=== PATIENT | female | born 1930 | race Caucasian/White ===

== ENCOUNTER 2016-07-09 21:33 | Emergency (ER) | payer MEDICARE, OTHER ==
[~2016-07-09] VITALS: Ht 162.6 cm; Wt 63.5 kg
[~2016-07-09 21:33] MED LIST: see list
[2016-07-09] MEDS ORDERED: MEMA28CA PO (21:49)
[2016-07-09] MEDS ORDERED: CLOP75TA69 PO (21:49)
[2016-07-09] MEDS ORDERED: LORA10CA PO (21:49)
[2016-07-09] MEDS ORDERED: DONE10TA12 PO (21:49)
[2016-07-09] MEDS ORDERED: TEMA15CA6 PO (21:49)
[2016-07-09] MEDS ORDERED: LUTE20CA2 PO (21:49)
[2016-07-09] MEDS ORDERED: NS IV 500 ML 500 ML IV ONE (21:50)
--- NOTE | 2016-07-09 21:56 | ED General ---
General Chief Complaint: Abdominal/GI Problems Stated Complaint: DIZZY, NAUSEA Nursing Triage Note: per [facility] staff patient has had emesis x 4 and became weak and dizzy after the fact. Nursing Sepsis Screen: No Definite Risk Source of Information: Patient Exam Limitations: No Limitations History of Present Illness Time Seen by Provider: 21:35 Initial Comments This pleasant 85-year-old woman presents to the emergency room from [facility] where she was experiencing dizziness and vomiting. She has a mild cough. She denies any diarrhea or abdominal pain. A recent workup with her PCP , Dr. Strauss, was unremarkable per family's report. She is accompanied by her daughter. Staff at the [facility] reported "increased lethargy" and a yellowish color to her skin. She suffers from dementia but is still interactive and responding appropriately to my questions. She denies any nausea at this time. Allergies and Home Medications Allergies Coded Allergies: No Known Drug Allergies (Unverified , 08/10/11) Home Medications (Reported) Cephalexin 500 Mg Capsule #20 500 MG PO TID Prescribed by: JIGAR PRESCOTT on 07/10/16 0001 Clopidogrel Bisulfate 75 Mg Tablet 75 MG PO DAILY (Reported) Donepezil HCl 10 Mg Tablet 10 MG PO (Reported) Loratadine 10 Mg Capsule 10 MG PO (Reported) Lutein 20 Mg Capsule 20 MG PO (Reported) Memantine HCl 28 Mg Cap.spr.24 28 MG PO (Reported) Temazepam 15 Mg Capsule 15 MG PO (Reported) Constitutional: see HPI EENTM: no symptoms reported Respiratory: see HPI Cardiovascular: no symptoms reported Gastrointestinal: see HPI Genitourinary: no symptoms reported : No Musculoskeletal: no symptoms reported Skin: no symptoms reported Psychiatric/Neurological: See HPI Hematologic/Lymphatic: No Symptoms Reported Past Ishoasm-Irihyr-Vjgncl Hx Patient Social History Alcohol Use: Denies Use Recreational Drug Use: No Smoking Status: Never a Smoker Recent Foreign Travel: No Contact w/Someone Who Travel: No Recent Infectious Disease Expo: No Recent Hopitalizations: No Surgeries HX Surgeries: Yes Surgeries: Breast, Gallbladder, Orthopedic Respiratory Hx Respiratory Disorders: No Cardiovascular Hx Cardiac Disorders: Yes Cardiac Disorders: Coronary Artery Disease Neurological Hx Neurological Disorders: Yes Neurological Disorders: Dementia Reproductive System Hx Reproductive Disorders: No Genitourinary Hx Genitourinary Disorders: Yes Genitourinary Disorders: UTI-Chronic Gastrointestinal Hx Gastrointestinal Disorders: No Musculoskeletal Hx Musculoskeletal Disorders: Yes Musculoskeletal Disorders: Arthritis Endocrine Hx Endocrine Disorders: No HEENT HX ENT Disorders: Yes HEENT Disorders: Macular Degeneration Hearing Impairment: Hard of Hearing Cancer Hx Cancer: No Psychosocial Hx Psychiatric Problems: No Integumentary HX Skin/Integumentary Disorder: No Blood Transfusions Hx Blood Disorders: No Physical Exam Vital Signs Vital Sign - Last 12Hours 07/09/16 21:42 Temp 96.4 Pulse 83 Resp 18 B/P 160/81 Pulse Ox 95 Capillary Refill : Less Than 3 Seconds General Appearance: No Apparent Distress WD/WN HEENT: PERRL/EOMI Normal ENT Inspection Pharynx Normal Neck: Normal Inspection Respiratory: Lungs Clear Normal Breath Sounds No Accessory Muscle Use No Respiratory Distress Cardiovascular: Regular Rate, Rhythm No Edema No Murmur Gastrointestinal: Normal Bowel Sounds Non Tender Soft Extremity: Normal Inspection No Pedal Edema Neurologic/Psychiatric: Alert No Motor/Sensory Deficits Normal 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 Norm as Tested Other (dulled cognition with dementia at baseline.) Skin: Normal Color Warm/Dry Progress/Results/Core Measures Results/Orders Lab Results Laboratory Tests Test 07/09/16 21:52 07/09/16 23:00 Range/Units Alanine Aminotransferase (ALT/SGPT) 11 0-55 U/L Albumin 4.2 3.2-4.5 G/DL Alkaline Phosphatase 49 40-136 U/L Anion Gap 11 5-14 MMOL/L Aspartate Amino Transf (AST/SGOT) 14 5-34 U/L BUN/Creatinine Ratio 19 Basophils # (Auto) 0.1 0.0-0.1 10^3/uL Basophils (%) (Auto) 0 0-10 % Blood Urea Nitrogen 18 7-18 MG/DL Calcium Level 9.5 8.5-10.1 MG/DL Carbon Dioxide Level 25 21-32 MMOL/L Chloride Level 103 98-107 MMOL/L Creatinine 0.93 0.60-1.30 MG/DL Eosinophils # (Auto) 0.1 0.0-0.3 10^3/uL Eosinophils (%) (Auto) 1 0-10 % Estimat Glomerular Filtration Rate 57 Glucose Level 116 H 70-105 MG/DL Hematocrit 42 35-52 % Hemoglobin 14.1 11.5-16.0 G/DL Lymphocytes # (Auto) 2.4 1.0-4.0 X 10^3 Lymphocytes (%) (Auto) 19 12-44 % Magnesium Level 2.3 1.8-2.4 MG/DL Mean Corpuscular Hemoglobin 33 25-34 PG Mean Corpuscular Hemoglobin Concent 34 32-36 G/DL Mean Corpuscular Volume 98 80-99 FL Mean Platelet Volume 8.8 7.4-10.4 FL Monocytes # (Auto) 0.9 0.0-1.0 X 10^3 Monocytes (%) (Auto) 7 0-12 % Neutrophils # (Auto) 9.4 H 1.8-7.8 X 10^3 Neutrophils (%) (Auto) 73 42-75 % Platelet Count 235 130-400 10^3/uL Potassium Level 4.1 3.6-5.0 MMOL/L Red Blood Count 4.25 L 4.35-5.85 10^6/uL Red Cell Distribution Width 12.6 10.0-14.5 % Sodium Level 139 135-145 MMOL/L Total Bilirubin 0.4 0.1-1.0 MG/DL Total Protein 6.8 6.4-8.2 G/DL Troponin I < 0.30 <0.30 NG/ML White Blood Count 12.9 H 4.3-11.0 10^3/uL Urine Amorphous Sediment FEW MICHELLE PHOSPHATE H /LPF Urine Bacteria TRACE /HPF Urine Bilirubin NEGATIVE NEGATIVE Urine Casts NONE /LPF Urine Clarity VERY CLOUDY H Urine Color YELLOW Urine Crystals PRESENT H /LPF Urine Culture Indicated YES Urine Glucose (UA) NEGATIVE NEGATIVE Urine Ketones NEGATIVE NEGATIVE Urine Leukocyte Esterase 3+ H NEGATIVE Urine Mucus NEGATIVE /LPF Urine Nitrite NEGATIVE NEGATIVE Urine Protein NEGATIVE NEGATIVE Urine RBC NONE /HPF Urine RBC (Auto) 1+ H NEGATIVE Urine Specific [place] 1.015 L 1.016-1.022 Urine Squamous Epithelial Cells 5-10 /HPF Urine Urobilinogen NORMAL NORMAL MG/DL Urine WBC 25-50 H /HPF Urine pH 8 5-9 Micro Results Microbiology 07/09/16 Influenza Types A,B Antigen (CHACE) - Final, Complete My Orders Orders-JIGAR ACE MD Cbc With Automated Diff (07/09/16 21:34) Comprehensive Metabolic Panel (07/09/16 21:34) Magnesium (07/09/16 21:34) Ua Culture If Indicated (07/09/16 21:34) Saline Lock/Iv-Start (07/09/16 21:34) Ekg Tracing (07/09/16 21:34) Monitor-Rhythm Ecg Trace Only (07/09/16 21:34) Chest Pa/Lat (2 View) (07/09/16 21:47) Troponin I (07/09/16 21:47) Influenza A And B Antigens (07/09/16 21:47) Ns Iv 500 Ml (Sodium Chloride 0.9%) (07/09/16 21:50) Urine Culture (07/09/16 23:00) Ceftriaxone Injection (Rocephin Injectio (07/09/16 23:30) Rx-Ondansetron Po (Rx-Zofran Po) (07/09/16 23:23) Medications Given in ED Current Medications Medications Dose Ordered Sig/Presley Route Start Time Stop Time Status Last Admin Dose Admin Ceftriaxone Sodium/Sodium Chloride 50 ml @ 100 mls/hr ONCE ONCE IV 07/09/16 23:30 07/09/16 23:59 DC 07/09/16 23:31 100 MLS/HR Sodium Chloride 500 ml @ 0 mls/hr Q0M ONCE IV 07/09/16 21:50 07/09/16 21:51 DC 07/09/16 21:56 0 MLS/HR Vital Signs/I&O Vital Sign - Last 12Hours 07/09/16 07/10/16 21:42 00:06 Temp 96.4 Pulse 83 84 Resp 18 16 B/P 160/81 Pulse Ox 95 98 Blood Pressure Mean: 107 Progress Note : Progress Note Patient was found to have a urinary tract infection and a gram of Rocephin was infused. She also received 500 mL of normal saline. There was no further nausea or vomiting. Patient was comfortable at the time of dismissal. ECG Initial ECG Impression Date: Jul 09, 2016 Initial ECG Impression Time: 21:44 Initial ECG Rate: 69 Initial ECG Rhythm: Normal Sinus Comment Normal sinus rhythm with no ST elevation or depression. Automated read states left anterior fascicular block. No significant axis deviation. Diagnostic Imaging Diagonstic Imaging: Xray Plain Films/CT/US/NM/MRI: chest Comments two-view chest x-ray viewed by me and report not available. Elevation of the right hemidiaphragm with no other acute abnormalities. Departure Impression Impression: Primary Impression: Urinary tract infection Qualified Code: N39.0 - Urinary tract infection, site not specified Additional Impressions: Nausea and vomiting Qualified Code: R11.2 - Nausea with vomiting, unspecified Malaise Disposition: HOME, SELF-CARE Condition: Improved Departure-Patient Inst. Decision time for Depature: 23:30 Referrals: ALLAN STRAUSS MD (PCP/Family) Primary Care Physician Patient Instructions: Urinary Tract Infection, Adult (DC) Add. Discharge Instructions: Encourage plenty of clear liquids. Complete the entire course of antibiotics as prescribed. Follow-up with your primary care provider on Monday to review urine culture results. Dissolve Zofran under the tongue every 4 hours as needed for nausea. Return to the ER symptoms worsen. All discharge instructions reviewed with patient and/or family. Voiced understanding. Scripts Cephalexin (Keflex)500 Mg [id number] Mg PO TID #20 CAP Prov:JIGAR ACE MD 07/10/16 JIGAR ACE MD Jul 09, 2016 21:56
[2016-07-09 21:59] LABS: BASOPHILS # (AUTO) 0.1 10^3/uL (0.0-0.1); BASOPHILS % (AUTO) 0 % (0-10); EOSINOPHILS # (AUTO) 0.1 10^3/uL (0.0-0.3); EOSINOPHILS % (AUTO) 1 % (0-10); LYMPHOCYTES # (AUTO) 2.4 X 10^3 (1.0-4.0); LYMPHOCYTES % (AUTO) 19 % (12-44); MEAN CORPUSCULAR HEMOGLOBIN 33 PG (25-34); MEAN CORPUSCULAR HGB CONC 34 G/DL (32-36); MEAN CORPUSCULAR VOLUME 98 FL (80-99); MEAN PLATELET VOLUME 8.8 FL (7.4-10.4); MONOCYTES # (AUTO) 0.9 X 10^3 (0.0-1.0); MONOCYTES % (AUTO) 7 % (0-12); NEUTROPHILS # (AUTO) 9.4 X 10^3 (1.8-7.8); NEUTROPHILS % (AUTO) 73 % (42-75); PLATELET COUNT 235 10^3/uL (130-400); RED BLOOD COUNT 4.25 10^6/uL (4.35-5.85); RED CELL DISTRIBUTION WIDTH 12.6 % (10.0-14.5); WHITE BLOOD COUNT 12.9 10^3/uL (4.3-11.0)
[2016-07-09 22:20] LABS: ALANINE AMINOTRANSFERASE 11 U/L (0-55); ALBUMIN 4.2 G/DL (3.2-4.5); ANION GAP 11 MMOL/L (5-14); ASPARTATE AMINO TRANSFERASE 14 U/L (5-34); BILIRUBIN,TOTAL 0.4 MG/DL (0.1-1.0); BLOOD UREA NITROGEN 18 MG/DL (7-18); BUN/CREATININE RATIO 19; CALCIUM 9.5 MG/DL (8.5-10.1); CARBON DIOXIDE 25 MMOL/L (21-32); CHLORIDE 103 MMOL/L (98-107); CREATININE SERUM 0.93 MG/DL (0.60-1.30); GFR ESTIMATED 57; GLUCOSE 116 MG/DL (70-105); MAGNESIUM 2.3 MG/DL (1.8-2.4); POTASSIUM 4.1 MMOL/L (3.6-5.0); SODIUM 139 MMOL/L (135-145); TOTAL PROTEIN 6.8 G/DL (6.4-8.2)
[2016-07-09 22:26] LABS: TROPONIN I < 0.30 NG/ML (<0.30)
[2016-07-09 23:10] LABS: BILIRUBIN,URINE NEGATIVE (NEGATIVE); KETONES,URINE NEGATIVE (NEGATIVE); LEUKOCYTE ESTERASE ,URINE 3+ (NEGATIVE); NITRITE,URINE NEGATIVE (NEGATIVE); PH,URINE 8 (5-9); PROTEIN,URINE NEGATIVE (NEGATIVE); UROBILINOGEN,URINE NORMAL (NORMAL)
[2016-07-09 23:20] LABS: WBC,URINE 25-50 /HPF
[2016-07-09] MEDS ORDERED: RX-ONDANSETRON 4 MG ODT (ZOFRAN) PPK #4 SL STA (23:23)
[2016-07-09] MEDS ORDERED: cefTRIAXone INJECTION 1,000 MG in NS (IVPB) 50 ML IV ONE (23:30)
[2016-07-10] MEDS ORDERED: CEPH-507 PO (00:01)
[2016-07-10 00:06] VITALS: BP 169/88
--- NOTE | 2016-07-10 08:31 | Diagnostic Imaging Report ---
INDICATION: Repeated episodes of emesis, became weak and dizzy. TECHNIQUE: Two view chest 10:03 PM CORRELATION STUDY: None FINDINGS: Slight asymmetric elevation of the right hemidiaphragm. The lungs overall appear to be generally clear. Heart size borderline enlarged. Vasculature within normal limits. Calcified perihilar lymph nodes present. Slightly accentuated thoracic kyphotic curvature with degenerative changes of the thoracic spine. IMPRESSION: 1. Asymmetric elevation of the right hemidiaphragm with unknown etiology or significance. Borderline heart size without failure. Dictated by: Dictated on workstation # [id number]
== END 2016-07-10 00:05 ==
LOC: EDUNIT# 21:33 → ER 21:35
DX: N39.0 Urinary tract infection, site not specified (principal); R11.2 Nausea with vomiting, unspecified; R53.81 Other malaise; I44.4 Left anterior fascicular block; I25.10 Atherosclerotic heart disease of native coronary artery without angina pectoris; R42 Dizziness and giddiness; F03.90 Unspecified dementia, unspecified severity, without behavioral disturbance, psychotic disturbance, mood disturbance, and anxiety; Z79.899 Other long term (current) drug therapy; Z79.02 Long term (current) use of antithrombotics/antiplatelets
CPT/HCPCS: 36415; 71020; 80053; 81000; 83735; 84484; 85025; 87088; 87804; 93005; 96361; 96365

== ENCOUNTER → 2016-09-20 | Outpatient (CLI) | payer MEDICARE, OTHER ==
[~2016-09-20] MED LIST changes: +CEPH-507 PO; +CLOP75TA69 PO; +DONE10TA12 PO; +LORA10CA PO; +LUTE20CA2 PO; +MEMA28CA PO; +TEMA15CA6 PO
--- NOTE | 2016-09-20 15:33 | Diagnostic Imaging Report ---
PROCEDURE: CT head without contrast. TECHNIQUE: Multiple contiguous axial images were obtained through the brain without the use of intravenous contrast. INDICATION: Confusion. Weakness. Headache. FINDINGS: There is no intercurrent hemorrhage, edema or mass effect. The brain parenchyma demonstrates periventricular and deep white matter prominent hypodensities compatible with chronic microvascular ischemic changes. There is no hydrocephalus. No extra-axial fluid collection is seen. The calvarium, the paranasal sinuses and orbits visualized appear unremarkable. IMPRESSION: No acute process. Dictated by: Dictated on workstation # [id number]
== END ==
LOC: RAD 14:54
PROVIDERS: ATTEND Nurse Practitioner Family
DX: F44.89 Other dissociative and conversion disorders (principal)
CPT/HCPCS: 70450

== ENCOUNTER 2017-05-14 15:36 | Inpatient (IN) | payer MEDICARE, OTHER ==
[~2017-05-14] VITALS: Ht 162.6 cm; Wt 57.0 kg
[2017-05-14] MEDS ORDERED: NS IV 1000 ML 1,000 ML IV ONE (18:49)
[2017-05-14] MEDS ORDERED: RX-OSELTAMIVIR 75 MG (TAMIFLU) BOX OF 10 PO STA (18:49)
--- NOTE | 2017-05-14 18:57 | ED General ---
General Chief Complaint: Cough/Cold/Flu Symptoms Stated Complaint: LETHARGIC/COUGH Nursing Triage Note: c/o cough/congestion/weakness since Monday. Denies known fever. Denies vomiting or diarrhea. Nursing Sepsis Screen: No Definite Risk Source of Information: Patient, Family Exam Limitations: Physical Impairments History of Present Illness Time Seen by Provider: 18:35 Initial Comments Here with report of cough and congestion since Monday with fever today. Stays at the assisted living side at [facility]. She is not eating or drinking well and was quite lethargic today. Apparently wasn't eating or drinking well yesterday either. Does have dementia. Functions well enough to be in the assisted living side though. No report of vomiting or diarrhea. Does have some tingling around her lips. Not normally on oxygen. O2 saturations upper 80s when resting. Daughter was concerned due to moderate amount of chest rattling rattle with coughing. Timing/Duration: 1-2 Days Severity: Moderate Associated Systoms: Cough, Fever/Chills, No Nausea/Vomiting, Shortness of Air, Weakness Allergies and Home Medications Allergies Coded Allergies: No Known Drug Allergies (Unverified , 08/10/11) Home Medications Cephalexin 500 Mg Capsule, 500 MG PO TID, #20 Prescribed by: JIGAR PRESCOTT on 07/10/16 0001 Clopidogrel Bisulfate 75 Mg Tablet, 75 MG PO DAILY, (Reported) Donepezil HCl 10 Mg Tablet, 10 MG PO, (Reported) Loratadine 10 Mg Capsule, 10 MG PO, (Reported) Lutein 20 Mg Capsule, 20 MG PO, (Reported) Memantine HCl 28 Mg Cap.spr.24, 28 MG PO, (Reported) Temazepam 15 Mg Capsule, 15 MG PO, (Reported) [see list] , (Reported) Constitutional: see HPI, No chills, fever EENTM: nose congestion Respiratory: cough, short of breath Cardiovascular: no symptoms reported Gastrointestinal: No nausea, No vomiting Genitourinary: no symptoms reported Other Unable to complete review of systems due to patient's very sluggish and very hard of hearing and not answering questions well. Past Btyyrzx-Ngkbgt-Bedhbx Hx Patient Social History Alcohol Use: Denies Use Recreational Drug Use: No Smoking Status: Never a Smoker Recent Foreign Travel: No Contact w/Someone Who Travel: No Recent Infectious Disease Expo: No Recent Hopitalizations: No Surgeries History of Surgeries: Yes Surgeries: Breast, Gallbladder, Orthopedic Respiratory History of Respiratory Disorde: No Cardiovascular History of Cardiac Disorders: Yes Cardiac Disorders: Coronary Artery Disease Neurological History of Neurological Disord: Yes Neurological Disorders: Dementia Reproductive System Hx Reproductive Disorders: No Genitourinary Genitourinary Disorders: UTI-Chronic Gastrointestinal History of Gastrointestinal Di: No Musculoskeletal History of Musculoskeletal Dis: Yes Musculoskeletal Disorders: Arthritis Endocrine History of Endocrine Disorders: No HEENT HEENT Disorders: Macular Degeneration Hearing Impairment: Hard of Hearing Cancer History of Cancer: No Psychosocial History of Psychiatric Problem: No Integumentary History of Skin or Integumenta: No Blood Transfusions History of Blood Disorders: No Reviewed Nursing Assessment Reviewed/Agree w Nursing PMH: Yes Family Medical History Significant Family History: No Pertinent Family Hx Physical Exam-Suspected Sepsis Physical Exam Vital Signs Vital Sign - Last 12Hours 05/14/17 05/14/17 17:12 22:37 Temp 98.5 Pulse 100 Resp 18 B/P (MAP) 129/71 (90) Pulse Ox 91 O2 Delivery Room Air O2 Flow Rate 2.00 Capillary Refill : Less Than 3 Seconds Blood Pressure Mean: 90 General Appearance: No Apparent Distress, Thin HEENT: PERRL/EOMI, Other (Dry mucous membranes with soft palate growth noted. This is approximately 2 x 4 cm) Neck: Full Range of Motion, Non Tender, Supple Respiratory: No Accessory Muscle Use, Crackles Cardiovascular: No Murmur, Tachycardia Gastrointestinal: Non Tender, Soft Back: Normal Inspection, No CVA Tenderness, No Vertebral Tenderness Extremity: Normal Range of Motion, Non Tender Neurologic/Psychiatric: Alert, Oriented x3 Skin: normal color, warm/dry Focused Exam Evaluation Lactate Level Laboratory Tests 05/14/17 19:05: Lactic Acid Level 1.07 Progress/Results/Core Measures Suspected Sepsis Recent Fever Within 48 Hours: No Infection Criteria Present: Suspected New Infection New/Unexplained Altered Menta: No Sepsis Screen: No Definite Risk Sepsis Diagnosis: SIRS Temperature:98.5 Pulse: 100 Respiratory Rate: 18 Laboratory Tests 05/14/17 19:05: White Blood Count 7.8 Blood Pressure 129 /71 Mean: 90 Laboratory Tests 05/14/17 19:05: Lactic Acid Level 1.07 Laboratory Tests 05/14/17 19:05: Creatinine 0.73, INR Comment 1.1, Platelet Count 195, Total Bilirubin 0.4 Results/Orders Lab Results Laboratory Tests Test 05/14/17 19:05 05/14/17 21:00 Range/Units White Blood Count 7.8 4.3-11.0 10^3/uL Red Blood Count 4.22 L 4.35-5.85 10^6/uL Hemoglobin 14.0 11.5-16.0 G/DL Hematocrit 42 35-52 % Mean Corpuscular Volume 99 80-99 FL Mean Corpuscular Hemoglobin 33 25-34 PG Mean Corpuscular Hemoglobin Concent 33 32-36 G/DL Red Cell Distribution Width 12.5 10.0-14.5 % Platelet Count 195 130-400 10^3/uL Mean Platelet Volume 9.5 7.4-10.4 FL Neutrophils (%) (Auto) 72 42-75 % Lymphocytes (%) (Auto) 17 12-44 % Monocytes (%) (Auto) 11 0-12 % Eosinophils (%) (Auto) 0 0-10 % Basophils (%) (Auto) 0 0-10 % Neutrophils # (Auto) 5.6 1.8-7.8 X 10^3 Lymphocytes # (Auto) 1.3 1.0-4.0 X 10^3 Monocytes # (Auto) 0.9 0.0-1.0 X 10^3 Eosinophils # (Auto) 0.0 0.0-0.3 10^3/uL Basophils # (Auto) 0.0 0.0-0.1 10^3/uL Prothrombin Time 14.4 12.2-14.7 SEC INR Comment 1.1 0.8-1.4 Activated Partial Thromboplast Time 34 24-35 SEC Sodium Level 145 135-145 MMOL/L Potassium Level 4.6 3.6-5.0 MMOL/L Chloride Level 107 98-107 MMOL/L Carbon Dioxide Level 19 L 21-32 MMOL/L Anion Gap 19 H 5-14 MMOL/L Blood Urea Nitrogen 41 H 7-18 MG/DL Creatinine 0.73 0.60-1.30 MG/DL Estimat Glomerular Filtration Rate > 60 BUN/Creatinine Ratio 56 Glucose Level 104 70-105 MG/DL Lactic Acid Level 1.07 0.50-2.00 MMOL/L Calcium Level 10.2 H 8.5-10.1 MG/DL Total Bilirubin 0.4 0.1-1.0 MG/DL Aspartate Amino Transf (AST/SGOT) 30 5-34 U/L Alanine Aminotransferase (ALT/SGPT) 23 0-55 U/L Alkaline Phosphatase 54 40-136 U/L Total Protein 7.1 6.4-8.2 GM/DL Albumin 3.9 3.2-4.5 GM/DL Urine Color YELLOW Urine Clarity CLEAR Urine pH 5 5-9 Urine Specific [place] 1.025 H 1.016-1.022 Urine Protein 2+ H NEGATIVE Urine Glucose (UA) NEGATIVE NEGATIVE Urine Ketones 4+ H NEGATIVE Urine Nitrite NEGATIVE NEGATIVE Urine Bilirubin NEGATIVE NEGATIVE Urine Urobilinogen NORMAL NORMAL MG/DL Urine Leukocyte Esterase NEGATIVE NEGATIVE Urine RBC (Auto) NEGATIVE NEGATIVE Urine RBC NONE /HPF Urine WBC NONE /HPF Urine Squamous Epithelial Cells 0-2 /HPF Urine Crystals NONE /LPF Urine Bacteria NEGATIVE /HPF Urine Casts PRESENT /LPF Urine Hyaline Casts 0-2 H /LPF Urine Mucus NEGATIVE /LPF Urine Culture Indicated NO Micro Results Microbiology 05/14/17 Influenza Types A,B Antigen (CHACE) - Final, Complete My Orders Orders - ISAIAS GAMEZ MD Ns Iv 1000 Ml (Sodium Chloride 0.9%) (05/14/17 18:49) Cbc With Automated Diff (05/14/17 18:49) Comprehensive Metabolic Panel (05/14/17 18:49) Lactic Acid Analyzer (05/14/17 18:49) Blood Culture (05/14/17 18:49) Sputum Culture (05/14/17 18:49) Ua Culture If Indicated (05/14/17 18:49) Protime With Inr (05/14/17 18:49) Partial Thromboplastin Time (05/14/17 18:49) Chest 1 View, Ap/Pa Only (05/14/17 18:49) O2 (05/14/17 18:49) Saline Lock/Iv-Start (05/14/17 18:49) Vital Signs Adult Sepsis Patie Q1H (05/14/17 18:49) Remove Rings In Anticipation O (05/14/17 18:49) Rx-Oseltamivir Caps (Rx-Tamiflu Caps) (05/14/17 18:49) Ns Iv 500 Ml (Sodium Chloride 0.9%) (05/14/17 22:06) Albuterol/Ipra Inhalation Soln (Duoneb I (05/14/17 22:30) Svn Sm Volume Nebulizer Rt-Rfs (05/14/17 22:20) Methylprednisolone Sod Succ (Solu-Medrol (05/14/17 22:38) Medications Given in ED Current Medications Medications Dose Ordered Sig/Presley Route Start Time Stop Time Status Last Admin Dose Admin Albuterol/ Ipratropium 3 ml ONCE ONCE INH 05/14/17 22:30 05/14/17 22:31 DC 05/14/17 22:37 3 ML Sodium Chloride 500 ml @ 0 mls/hr Q0M ONCE IV 05/14/17 22:06 05/14/17 22:07 DC 05/14/17 22:20 0 MLS/HR Sodium Chloride 1,000 ml @ 0 mls/hr Q0M ONCE IV 05/14/17 18:49 05/14/17 18:52 DC 05/14/17 19:22 0 MLS/HR Vital Signs/I&O Vital Sign - Last 12Hours 05/14/17 05/14/17 17:12 22:37 Temp 98.5 Pulse 100 Resp 18 B/P (MAP) 129/71 (90) Pulse Ox 91 97 O2 Delivery Room Air Nasal Cannula O2 Flow Rate 2.00 Capillary Refill : Less Than 3 Seconds Blood Pressure Mean: 90 Progress Note : Progress Note Seen and evaluated. Influenza screen ordered and done. Influenza A positive. Patient is quite ill appearing. IV, labs, UA, chest x-ray, normal saline 1 L bolus, Tamiflu dosing initiated. Monitor patient. Patient monitored and labs reviewed. 0: Repeat dosing of normal saline at 500 mL bolus ordered. Patient has been on oxygen throughout visit. We'll stop the oxygen and will evaluate for stability. 0: Patient has O2 sat of 88 percent on room air. She is not normally on oxygen. She will require oxygen therapy. I did discuss the case with Dr. Arredondo. We will treat patient with Tamiflu and nebs as needed and continue hydration. She will be admitted to the hospital for influenza as well as hypoxia and dehydration. All of the findings and concerns were discussed with the patient's family who agree to admission. Admit, inpatient status. Family agrees with plan. Departure Communication (Admissions) Time/Spoke to Admitting Phy: 22:20 Impression Impression: Primary Impression: Influenza B Additional Impressions: Hypoxia Dehydration Disposition: ADMITTED INPATIENT Condition: Stable Admissions Decision to Admit Reason: Admit from ER (General) Decision to Admit/Date: May 14, 2017 Time/Decision to Admit Time: 22:20 Departure-Patient Inst. Referrals: ALLAN GRAHAM MD (PCP/Family) Primary Care Physician ISAIAS GAMEZ MD May 14, 2017 18:56
[2017-05-14 19:17] LABS: BASOPHILS % (AUTO) 0 % (0-10); EOSINOPHILS % (AUTO) 0 % (0-10); HEMATOCRIT 42 % (35-52); LYMPHOCYTES # (AUTO) 1.3 X 10^3 (1.0-4.0); LYMPHOCYTES % (AUTO) 17 % (12-44); MEAN CORPUSCULAR HEMOGLOBIN 33 PG (25-34); MEAN CORPUSCULAR HGB CONC 33 G/DL (32-36); MEAN CORPUSCULAR VOLUME 99 FL (80-99); MEAN PLATELET VOLUME 9.5 FL (7.4-10.4); MONOCYTES # (AUTO) 0.9 X 10^3 (0.0-1.0); MONOCYTES % (AUTO) 11 % (0-12); NEUTROPHILS # (AUTO) 5.6 X 10^3 (1.8-7.8); NEUTROPHILS % (AUTO) 72 % (42-75); PLATELET COUNT 195 10^3/uL (130-400); RED BLOOD COUNT 4.22 10^6/uL (4.35-5.85); RED CELL DISTRIBUTION WIDTH 12.5 % (10.0-14.5); WHITE BLOOD COUNT 7.8 10^3/uL (4.3-11.0)
[2017-05-14 19:29] LABS: INR 1.1 (0.8-1.4); PROTHROMBIN TIME PATIENT 14.4 SEC (12.2-14.7)
[2017-05-14 19:37] LABS: ALANINE AMINOTRANSFERASE 23 U/L (0-55); ALBUMIN 3.9 GM/DL (3.2-4.5); ALKALINE PHOSPHATASE 54 U/L (40-136); BILIRUBIN,TOTAL 0.4 MG/DL (0.1-1.0); BUN/CREATININE RATIO 56; CALCIUM 10.2 MG/DL (8.5-10.1); CARBON DIOXIDE 19 MMOL/L (21-32); CHLORIDE 107 MMOL/L (98-107); CREATININE SERUM 0.73 MG/DL (0.60-1.30); GFR ESTIMATED > 60; GLUCOSE 104 MG/DL (70-105); POTASSIUM 4.6 MMOL/L (3.6-5.0); SODIUM 145 MMOL/L (135-145); TOTAL PROTEIN 7.1 GM/DL (6.4-8.2)
--- NOTE | 2017-05-14 19:49 | Diagnostic Imaging Report ---
INDICATION: Cough and congestion Frontal chest obtained at 0719 p.m. Heart and mediastinal silhouette are normal in appearance. The lungs are clear. There is no pneumothorax or pleural fluid. IMPRESSION: Negative chest. Dictated by: Dictated on workstation # [id number]
[2017-05-14 21:11] LABS: BILIRUBIN,URINE NEGATIVE (NEGATIVE); CLARITY,URINE CLEAR; COLOR,URINE YELLOW; GLUCOSE, URINE (UA) NEGATIVE (NEGATIVE); KETONES,URINE 4+ (NEGATIVE); LEUKOCYTE ESTERASE ,URINE NEGATIVE (NEGATIVE); NITRITE,URINE NEGATIVE (NEGATIVE); PH,URINE 5 (5-9); PROTEIN,URINE 2+ (NEGATIVE); UROBILINOGEN,URINE NORMAL (NORMAL)
[2017-05-14 21:19] LABS: BACTERIA,URINE NEGATIVE /HPF; HYALINE CASTS, URINE 0-2 /LPF; SQUAMOUS EPITHELIAL CELL,UR 0-2 /HPF
[2017-05-14] MEDS ORDERED: NS IV 500 ML 500 ML IV ONE (22:06)
[2017-05-14] MEDS ORDERED: RT-ALBUTEROL/IPRATROPIUM 3 ML (DUONEB) VIAL INH ONE (22:30)
[2017-05-14] MEDS ORDERED: methylPREDNISolone 125 MG (Solu-MEDROL) VIAL IV STA (22:38)
[2017-05-15] MEDS ORDERED: NS IV 1000 ML 1,000 ML ONE (00:10)
[2017-05-15] MEDS ORDERED: ACETAMINOPHEN 325 MG TABLET/CAPLET (TYLENOL) PO PRN (01:15)
[2017-05-15] MEDS ORDERED: RT-ALBUTEROL/IPRATROPIUM 3 ML (DUONEB) VIAL INH PRN (01:15)
[2017-05-15] MEDS: NS IV 1000 ML 1,000 ML IV SCH ×2 (01:26→13:46)
[2017-05-15] MEDS: RT-ALBUTEROL/IPRATROPIUM 3 ML (DUONEB) VIAL INH SCH ×4 (01:50→21:14)
[2017-05-15] MEDS: methylPREDNISolone 125 MG (Solu-MEDROL) VIAL IVP SCH ×4 (04:38→23:39)
[2017-05-15 04:45] VITALS: BP 132/63
[2017-05-15 06:35] LABS: BASOPHILS % (AUTO) 0 % (0-10); EOSINOPHILS % (AUTO) 0 % (0-10); HEMATOCRIT 38 % (35-52); HEMOGLOBIN 12.6 G/DL (11.5-16.0); LYMPHOCYTES # (AUTO) 0.7 X 10^3 (1.0-4.0); LYMPHOCYTES % (AUTO) 14 % (12-44); MEAN CORPUSCULAR HEMOGLOBIN 33 PG (25-34); MEAN CORPUSCULAR HGB CONC 33 G/DL (32-36); MEAN CORPUSCULAR VOLUME 100 FL (80-99); MEAN PLATELET VOLUME 9.8 FL (7.4-10.4); MONOCYTES # (AUTO) 0.1 X 10^3 (0.0-1.0); MONOCYTES % (AUTO) 3 % (0-12); NEUTROPHILS # (AUTO) 4.4 X 10^3 (1.8-7.8); NEUTROPHILS % (AUTO) 84 % (42-75); PLATELET COUNT 201 10^3/uL (130-400); RED BLOOD COUNT 3.82 10^6/uL (4.35-5.85); RED CELL DISTRIBUTION WIDTH 12.5 % (10.0-14.5); WHITE BLOOD COUNT 5.3 10^3/uL (4.3-11.0)
[2017-05-15 06:57] LABS: ALANINE AMINOTRANSFERASE 19 U/L (0-55); ALBUMIN 3.5 GM/DL (3.2-4.5); ALKALINE PHOSPHATASE 49 U/L (40-136); BILIRUBIN,TOTAL 0.3 MG/DL (0.1-1.0); BUN/CREATININE RATIO 42; CALCIUM 8.8 MG/DL (8.5-10.1); CARBON DIOXIDE 17 MMOL/L (21-32); CHLORIDE 111 MMOL/L (98-107); CREATININE SERUM 0.72 MG/DL (0.60-1.30); GFR ESTIMATED > 60; GLUCOSE 122 MG/DL (70-105); POTASSIUM 4.4 MMOL/L (3.6-5.0); SODIUM 143 MMOL/L (135-145); TOTAL PROTEIN 6.6 GM/DL (6.4-8.2)
[2017-05-15 08:00] VITALS: BP 156/70
[2017-05-15] MEDS ORDERED: OSELTAMIVIR 75 MG (TAMIFLU) BOX OF 10 PO SCH (09:00)
[2017-05-15] MEDS ORDERED: ROPI0.25 PO (10:30)
[2017-05-15] MEDS ORDERED: ACET-2267 PO (10:30)
[2017-05-15] MEDS ORDERED: MAGN800O PO (10:30)
[2017-05-15] MEDS ORDERED: MULT-35 PO (10:30)
[2017-05-15] MEDS ORDERED: CYCL1DRO OU (10:30)
[2017-05-15] MEDS ORDERED: POLY15DR14 OU (10:30)
[2017-05-15] MEDS ORDERED: ONDN4T PO (10:30)
[2017-05-15] MEDS ORDERED: SCOP1PAT TD (10:30)
[2017-05-15] MEDS ORDERED: LORA10TA7 PO (10:30)
[2017-05-15] MEDS ORDERED: CALC-696 PO (10:30)
[2017-05-15] MEDS ORDERED: PSYL660P17 PO (10:30)
[2017-05-15] MEDS ORDERED: GLUC100016 PO (10:30)
[2017-05-15] MEDS ORDERED: EYEL50FO2 OU (10:30)
[2017-05-15 12:00] VITALS: BP 145/68
--- NOTE | 2017-05-15 14:12 | History & Physical-Hospitalist ---
HPI History of Present Illness: HPI/Chief Complaint The patient is an 86-year-old white female who lives in the assisted living wing at [facility]. She had apparently developed a cough and congestion on Monday accompanied by a fever. She was reported to not be taking food or fluids well and was noted to be lethargic on 05/14. She does not normally use oxygen but her O2 saturations were noted to be in the upper 80s at rest in the emergency room. Workup in the emergency room revealed her to be influenza a positive. She was admitted for hydration and was placed on Tamiflu by the [facility] Recs Source: family Exam Limitations: no limitations Date Seen 05/15/17 Time Seen by Provider: 14:06 Attending Physician Noelle Arredondo Rick D MD Referring Physician Date of Admission May 14, 2017 at 22:30 Home Medications & Allergies Home Medications Reviewed patient Home Medication Reconciliation Form Allergies Allergies Coded Allergies No Known Drug Allergies (Unverified08/10/11) Past Pjvyfgk-Ltuadg-Bpnhpl Hx Patient Social History Alcohol Use: Denies Use Recreational Drug Use: No Smoking Status: Never a Smoker Physical Abuse Screen: No Sexual Abuse: No Recent Foreign Travel: No Contact w/other who traveled: No Recent Hopitalizations: No Recent Infectious Disease Expo: No Immunizations Up To Date Date of Influenza Vaccine: Jan 29, 2017 Seasonal Allergies Seasonal Allergies: Yes Surgeries Yes (BLADDER; FOOT) Breast, Gallbladder, Orthopedic Respiratory No Cardiovascular Yes Coronary Artery Disease Neurological Yes Dementia Reproductive System Hx Reproductive Disorders: No Genitourinary No UTI-Chronic Gastrointestinal No Musculoskeletal Yes Arthritis Endocrine History of Endocrine Disorders: No HEENT History of HEENT Disorders: Yes HEENT Disorders: Macular Degeneration Hearing Impairment: Hard of Hearing Cancer No Psychosocial History of Psychiatric Problem: No Integumentary History of Skin or Integumenta: No Blood Transfusions History of Blood Disorders: No Reviewed Nursing Assessment Reviewed/Agree w Nursing PMH: Yes Family Medical History Significant Family History: No Pertinent Family Hx Family Hx: Colon cancer 19 FATHER Dementia 19 MOTHER Diabetes mellitus G8 BROTHER FH: breast cancer in first degree relative G8 SISTER FH: cancer G8 BROTHER Review of Systems Constitutional: see HPI, other (the patient was not at all responsive to questioning) Physical Exam Physical Exam Vital Signs Vital Sign - Last 12Hours 05/14/17 05/14/17 17:12 22:37 Temp 98.5 Pulse 100 Resp 18 B/P (MAP) 129/71 (90) Pulse Ox 91 O2 Delivery Room Air O2 Flow Rate 2.00 Capillary Refill : Less Than 3 Seconds General Appearance: Other (elderly appearing but in no acute distress) HEENT: Other (tongue and buccal mucosa were dry) Neck: Normal Inspection Respiratory: Chest Non Tender, Lungs Clear, Normal Breath Sounds, No Accessory Muscle Use, No Respiratory Distress Cardiovascular: Regular Rate, Rhythm, No Edema, No Gallop, No JVD, No Murmur, Normal Peripheral Pulses Gastrointestinal: Normal Bowel Sounds, No Organomegaly, No Pulsatile Mass, Non Tender, Soft Extremity: Normal Capillary Refill, Normal Inspection, Normal Range of Motion, Non Tender, No Calf Tenderness, No Pedal Edema Neurologic/Psychiatric: Alert Skin: Normal Color, Warm/Dry Lymphatic: No Adenopathy Results Results/Procedures Lab Laboratory Tests 05/14/17 19:05 05/15/17 05:27 Assessment/Plan Admission Diagnosis Influenza B. 2.mild hypoxia plus dehydration. 3.dementia. Assessment and Plan O2 by nasal cannula and fluid replacement. Tamiflu by CDC recommendation for hospitalized patients Clinical Quality Measures DVT/VTE Risk/Contraindication: Risk Factor Score Per Nursin RFS Level Per Nursing on Admit: 4+=Very High HARI ROMAN MD May 15, 2017 14:12
[2017-05-15 16:00] VITALS: BP 131/73
[2017-05-15] MEDS: ACETAMINOPHEN 500 MG TAB (TYLENOL) PO SCH ×2 (17:38→22:16)
[2017-05-15 19:58] VITALS: BP 122/70
[2017-05-15] MEDS: rOPINIRole 0.25 MG (REQUIP) TAB PO SCH (22:09)
[2017-05-15] MEDS: OSELTAMIVIR 30 MG (TAMIFLU) BOX OF 10 PO SCH (22:10)
[2017-05-16] VITALS: BP 114/56
[2017-05-16] MEDS: NS IV 1000 ML 1,000 ML IV SCH ×2 (03:14→16:37)
[2017-05-16 04:00] VITALS: BP 134/70
[2017-05-16] MEDS: RT-ALBUTEROL/IPRATROPIUM 3 ML (DUONEB) VIAL INH SCH ×4 (04:33→22:19)
[2017-05-16] MEDS: methylPREDNISolone 125 MG (Solu-MEDROL) VIAL IVP SCH ×4 (05:01→22:59)
[2017-05-16 08:00] VITALS: BP 145/78
[2017-05-16] MEDS: LORATADINE (CLARITIN) 10 MG TAB PO SCH (08:44)
[2017-05-16] MEDS: CLOPIDOGREL 75 MG (PLAVIX) TABLET PO SCH (08:44)
[2017-05-16] MEDS: DONEPEZIL 10 MG (ARICEPT) TAB PO SCH (08:45)
[2017-05-16] MEDS: ACETAMINOPHEN 500 MG TAB (TYLENOL) PO SCH ×4 (08:45→20:46)
[2017-05-16] MEDS: OSELTAMIVIR 30 MG (TAMIFLU) BOX OF 10 PO SCH ×2 (08:45→20:47)
[2017-05-16 12:00] VITALS: BP 126/58
[2017-05-16 16:22] VITALS: BP 136/84
[2017-05-16 20:00] VITALS: BP 169/78
[2017-05-16] MEDS: rOPINIRole 0.25 MG (REQUIP) TAB PO SCH (20:46)
[2017-05-17 00:45] VITALS: BP 137/71
[2017-05-17] MEDS: RT-ALBUTEROL/IPRATROPIUM 3 ML (DUONEB) VIAL INH SCH ×2 (01:41→09:00)
[2017-05-17 04:11] VITALS: BP 132/74
[2017-05-17] MEDS: methylPREDNISolone 125 MG (Solu-MEDROL) VIAL IVP SCH (04:42)
[2017-05-17] MEDS: NS IV 1000 ML 1,000 ML IV SCH (06:50)
[2017-05-17 07:43] VITALS: BP 169/73
[2017-05-17] MEDS: DONEPEZIL 10 MG (ARICEPT) TAB PO SCH (08:09)
[2017-05-17] MEDS: LORATADINE (CLARITIN) 10 MG TAB PO SCH (08:09)
[2017-05-17] MEDS: OSELTAMIVIR 30 MG (TAMIFLU) BOX OF 10 PO SCH (08:10)
[2017-05-17] MEDS: ACETAMINOPHEN 500 MG TAB (TYLENOL) PO SCH (08:10)
[2017-05-17] MEDS: CLOPIDOGREL 75 MG (PLAVIX) TABLET PO SCH (08:10)
[2017-05-17] MEDS ORDERED: OSEL30CA PO (09:37)
[2017-05-17] MEDS ORDERED: PRED10TA22 PO (09:37)
--- NOTE | 2017-05-17 09:40 | Discharge Inst-Skilled Nursing ---
Discharge Inst-Skilled NF Chief Complaint The patient is an 86-year-old white female who lives in the assisted living wing at [facility]. She had apparently developed a cough and congestion on Monday accompanied by a fever. She was reported to not be taking food or fluids well and was noted to be lethargic on 05/14. She does not normally use oxygen but her O2 saturations were noted to be in the upper 80s at rest in the emergency room. Workup in the emergency room revealed her to be influenza a positive. She was admitted for hydration and was placed on Tamiflu by the [facility] Recs Patient Instructions Patient Problems: Hypoxia Influenza Weakness requiring skilled care Goal: Return to [place] Consult/Follow Up/Orders Follow Up Appt.: Dr Strauss in 2 weeks Skilled NF Admit to: [facility] Certification (SNF) I certify that SNF services are required to be given on an inpatient basis because of the above named patient's need for shelter care on a continuing basis for the conditions(s) for which he/she was receiving inpatient hospital services prior to his/her transfer to the SNF. Residential Facility Order: Nursing Services, Community Affairs Manager-Evaluate & Treat, Physical Therapy-Evaluate & Treat, Speech Language-Evaluate & Treat Discharge Diet: No Restrictions Daily Activity as Tolerated: Yes New & Resume Previous Orders New Medications: Prednisone (Prednisone) 10 Mg Tab.ds.pk 20 MG PO DAILY, #4 PKG Oseltamivir Phosphate (Tamiflu) 30 Mg Capsule 0 EACH PO BID for 2 Days, CAP Continued Medications: Acetaminophen (Tylenol Extra Strength) 500 Mg Tablet 500 MG PO QID, TAB Calcium Citrate/Vitamin D3 (Citracal + D Maximum Caplet) 1 Each Tablet 1 TAB PO DAILY, TAB Clopidogrel Bisulfate (Plavix) 75 Mg Tablet 75 MG PO DAILY, TAB Cyclosporine (Restasis) 1 Each Droperette 1 DROP OU DAILY, DROP Donepezil HCl (Aricept) 10 Mg Tablet 10 MG PO DAILY, TAB Eyelid Cleanser Combination #3 (Ocusoft Lid Scrub Plus) 50 Ml Foam..ml. OU BID, ML Glucosamine Sulfate 2Kcl (Glucosamine) 1,000 Mg Tablet 1000 MG PO BID, TAB Loratadine (Loratadine) 10 Mg Tablet 10 MG PO DAILY, TAB Lutein (Lutein) 20 Mg Capsule 20 MG PO 1200, CAP Magnesium Hydroxide (Milk of Magnesia) 2,400 Mg/10 Ml Oral.susp 30 ML PO DAILY PRN for CONSTIPATION-7TH LINE, ML Memantine HCl (Namenda Xr) 28 Mg Cap.spr.24 28 MG PO HS, CAP Multivitamin (Daily Multiple Vitamin) 1 Each Tablet 1 TAB PO DAILY, TAB Ondansetron HCl (Zofran) 4 Mg Tab 4 MG PO Q4H PRN for NAUSEA/VOMITING-1ST LINE, TAB Polyvinyl Alcohol/Povidone (Artificial Tears Drops) 15 Ml Drops 2 DROPS OU BID, DROPS Psyllium Husk (Metamucil) 660 Gm Powder 1 TSP PO DAILY PRN for CONSTIPATION, EA Ropinirole HCl (Ropinirole HCl) 0.25 Mg Tablet 0.25 MG PO HS, TAB Scopolamine (Transderm-Scop) 1 Each Patch.td72 1 PATCH TD DAILY PRN for DIZZINESS, PATCH Noelle Arredondo May 17, 2017 09:38 NOELLE ARREDONDO DO May 17, 2017 09:40
--- NOTE | 2017-05-17 09:42 | Discharge Summary-Hospitalist ---
Diagnosis/Chief Complaint Date of Admission May 14, 2017 at 22:30 Date of Discharge Discharge Date: May 17, 2017 Admission Diagnosis Influenza B. 2.mild hypoxia plus dehydration. 3.dementia. Discharge Diagnosis Influenza B acute infection Hypoxia Acute bronchospasm requiring steroids Dehydration Dementia Severe debility requiring skilled care at discharge Discharge Summary Discharge Physical Examination Allergies: Coded Allergies: No Known Drug Allergies (Unverified , 08/10/11) Vitals & I&Os Vital Signs Date Time Temp Pulse Resp B/P (MAP) Pulse Ox O2 Delivery O2 Flow Rate FiO2 05/17/17 11:15 68 18 158/88 95 Room Air 05/17/17 09:59 0.00 05/17/17 07:43 99.2 Hospital Course Hospital course: Patient had an uneventful hospital course she was admitted placed on Tamiflu for acute influenza B and maintain on oxygen and steroids for acute bronchospasm brought on by the influenza illness. Chest x-ray remained without infiltrate patient was deemed improving on oxygen but she did not require home O2 at discharge. Due to the severe debility she will be discharged to skilled care under Dr. Bateman's service of which I updated him personally. She will complete her Tamiflu complete short course of prednisone and will participate in skilled therapy to hopefully return back to assisted living. Labs (last 24 hrs) Microbiology 05/14/17 Blood Culture - Preliminary, Resulted No growth 05/14/17 Influenza Types A,B Antigen ([facility]) - Final, Complete Discharge Home Medications: Active Scripts Active Prednisone 10 Mg Tab.ds.pk 20 Mg PO DAILY Tamiflu (Oseltamivir Phosphate) 30 Mg Capsule 0 Each PO BID 2 Days Reported Tylenol Extra Strength (Acetaminophen) 500 Mg Tablet 500 Mg PO QID Ropinirole HCl 0.25 Mg Tablet 0.25 Mg PO HS Ocusoft Lid Scrub Plus (Eyelid Cleanser Combination #3) 50 Ml Foam..ml. OU BID Daily Multiple Vitamin (Multivitamin) 1 Each Tablet 1 Tab PO DAILY Citracal + D Maximum Caplet (Calcium Citrate/Vitamin D3) 1 Each Tablet 1 Tab PO DAILY Transderm-Scop (Scopolamine) 1 Each Patch.td72 1 Patch TD DAILY PRN Zofran (Ondansetron HCl) 4 Mg Tab 4 Mg PO Q4H PRN Milk of Magnesia (Magnesium Hydroxide) 2,400 Mg/10 Ml Oral.susp 30 Ml PO DAILY PRN Glucosamine (Glucosamine Sulfate 2Kcl) 1,000 Mg Tablet 1,000 Mg PO BID Artificial Tears Drops (Polyvinyl Alcohol/Povidone) 15 Ml Drops 2 Drops OU BID Restasis (Cyclosporine) 1 Each Droperette 1 Drop OU DAILY Metamucil (Psyllium Husk) 660 Gm Powder 1 Tsp PO DAILY PRN Loratadine 10 Mg Tablet 10 Mg PO DAILY Plavix (Clopidogrel Bisulfate) 75 Mg Tablet 75 Mg PO DAILY Namenda Xr (Memantine HCl) 28 Mg Cap.spr.24 28 Mg PO HS Lutein 20 Mg Capsule 20 Mg PO 1200 Aricept (Donepezil HCl) 10 Mg Tablet 10 Mg PO DAILY Instructions to patient/family Please see electronic discharge instructions given to patient. Clinical Quality Measures DVT/VTE Risk/Contraindication: Risk Factor Score Per Nursin RFS Level Per Nursing on Admit: 4+=Very High RAGHU SMITH DO May 17, 2017 09:41
[2017-05-17 11:15] VITALS: BP 158/88
[2017-05-17] MEDS ORDERED: OSELTAMIVIR 30 MG (TAMIFLU) BOX OF 10 PO SCH (11:15)
== END 2017-05-17 11:15 | DRG 195 ==
LOC: EDUNIT# 15:36 → ER 15:37 → 4TH 22:30
PROVIDERS: ADMIT Internal Medicine; ATTEND Internal Medicine
DX: J10.1 Influenza due to other identified influenza virus with other respiratory manifestations (principal); R09.02 Hypoxemia; E86.0 Dehydration; Z66 Do not resuscitate; I25.10 Atherosclerotic heart disease of native coronary artery without angina pectoris; F03.90 Unspecified dementia, unspecified severity, without behavioral disturbance, psychotic disturbance, mood disturbance, and anxiety; M19.91 Primary osteoarthritis, unspecified site; H35.30 Unspecified macular degeneration; J98.01 Acute bronchospasm; R53.81 Other malaise; Z87.440 Personal history of urinary (tract) infections
CPT/HCPCS: 36415; 51701; 71045; 80053; 81000; 83605; 85025; 85610; 85730; 87040; 87804; 94640; 94664; 94760; 94761; 96361; 96374

== ENCOUNTER 2018-03-25 10:09 | Inpatient (IN) | payer MEDICARE, OTHER ==
[~2018-03-25] VITALS: Ht 162.6 cm; Wt 62.3 kg
[~2018-03-25 10:09] MED LIST changes: +ACET-2267 PO; +CALC-696 PO; +CYCL1DRO OU; +EYEL50FO2 OU; +GLUC100016 PO; +LORA10TA7 PO; +MAGN800O PO; +MULT-35 PO; +ONDN4T PO; +OSEL30CA PO; +POLY15DR14 OU; +PRED10TA22 PO; +PSYL660P17 PO; +ROPI0.253 PO; +SCOP1PAT11 TD
[2018-03-25] MEDS ORDERED: NS IV 500 ML 500 ML IV ONE (10:30)
[2018-03-25 10:56] LABS: BASOPHILS # (AUTO) 0.1 10^3/uL (0.0-0.1); BASOPHILS % (AUTO) 1 % (0-10); EOSINOPHILS # (AUTO) 0.1 10^3/uL (0.0-0.3); EOSINOPHILS % (AUTO) 1 % (0-10); HEMATOCRIT 39 % (35-52); HEMOGLOBIN 12.8 G/DL (11.5-16.0); LYMPHOCYTES # (AUTO) 2.4 X 10^3 (1.0-4.0); LYMPHOCYTES % (AUTO) 19 % (12-44); MEAN CORPUSCULAR HEMOGLOBIN 33 PG (25-34); MEAN CORPUSCULAR HGB CONC 33 G/DL (32-36); MEAN CORPUSCULAR VOLUME 100 FL (80-99); MEAN PLATELET VOLUME 8.8 FL (7.4-10.4); MONOCYTES # (AUTO) 1.4 X 10^3 (0.0-1.0); MONOCYTES % (AUTO) 11 % (0-12); NEUTROPHILS % (AUTO) 69 % (42-75); PLATELET COUNT 285 10^3/uL (130-400); RED CELL DISTRIBUTION WIDTH 13.3 % (10.0-14.5)
[2018-03-25 11:20] LABS: ALBUMIN 3.9 GM/DL (3.2-4.5); BILIRUBIN,TOTAL 0.6 MG/DL (0.1-1.0); CALCIUM 9.6 MG/DL (8.5-10.1); CREATININE SERUM 1.09 MG/DL (0.60-1.30); MAGNESIUM 2.2 MG/DL (1.8-2.4); POTASSIUM 3.9 MMOL/L (3.6-5.0); TOTAL PROTEIN 6.6 GM/DL (6.4-8.2)
--- NOTE | 2018-03-25 12:22 | Diagnostic Imaging Report ---
Emanation: Single frontal view of the chest. Indication: Lethargy and decreased appetite. Comparison: Multiple priors, most recent on 05/14/2017. Findings: Unchanged calcified granuloma in the left lung base. There is an ill-defined 8 mm nodular density in the right lung base over the mid diaphragm. The lungs are otherwise clear. No pneumothorax or significant pleural effusion. There is suggestion of a calcified left hilar lymph nodes. The cardiomediastinal silhouette is unchanged. Normal cardiac size. No acute osseous abnormality. Impression: Ill-defined nodular density in the right lung base just above the diaphragm. This likely reflects confluence of shadows and possibly relates to the costochondral cartilage. This may be confirmed with lateral views or dedicated chest CT on a nonemergent basis. Otherwise, no acute chest disease and no significant change. Dictated by: Dictated on workstation # [id number]
--- NOTE | 2018-03-25 12:33 | ED General ---
General Chief Complaint: Altered Mental Status Stated Complaint: BLOOD PRESSURE LOW 88/65,LETHARGIC,SENT FROM [facility] Nursing Triage Note: pt presents to ed accompanied by daughter from [facility] with increased lethargy and decreased appetite. pt opens eye to voice and responds appropriately but appears fatigued. Nursing Sepsis Screen: No Definite Risk Source of Information: Patient, Old Records Exam Limitations: No Limitations History of Present Illness Date Seen by Provider: Mar 25, 2018 Time Seen by Provider: 10:11 Initial Comments This 87-year-old woman is brought to the emergency room by her daughter from [facility] with complaints of lethargy today. She has had declining condition since December. She has dementia and Parkinson's disease. She also has a history of urinary tract infections. Per EMS report, the [facility] was also concerned about a systolic blood pressure of 88. She is not hypotensive on arrival. She has been afebrile. She is alert to voice and will respond to questions appropriately. She does appear very somnolent. She is normally able to walk with some assistance. She seems weak today. Allergies and Home Medications Allergies Coded Allergies: codeine (Verified Allergy, Unknown, 03/25/18) Home Medications Acetaminophen 500 Mg Tablet, 500 MG PO QID, (Reported) Calcium Citrate/Vitamin D3 1 Each Tablet, 1 TAB PO DAILY, (Reported) Clopidogrel Bisulfate 75 Mg Tablet, 75 MG PO DAILY, (Reported) Cyclosporine 1 Each Droperette, 1 DROP OU DAILY, (Reported) Donepezil HCl 10 Mg Tablet, 10 MG PO DAILY, (Reported) Eyelid Cleanser Combination #3 50 Ml Foam..ml., OU BID, (Reported) Glucosamine Sulfate 2Kcl 1,000 Mg Tablet, 1,000 MG PO BID, (Reported) Loratadine 10 Mg Tablet, 10 MG PO DAILY, (Reported) Lutein 20 Mg Capsule, 20 MG PO 1200, (Reported) Magnesium Hydroxide 2,400 Mg/10 Ml Oral.susp, 30 ML PO DAILY PRN for CONSTIPATION-7TH LINE, (Reported) Memantine HCl 28 Mg Cap.spr.24, 28 MG PO HS, (Reported) Multivitamin 1 Each Tablet, 1 TAB PO DAILY, (Reported) Ondansetron HCl 4 Mg Tab, 4 MG PO Q4H PRN for NAUSEA/VOMITING-1ST LINE, ( Reported) Polyvinyl Alcohol/Povidone 15 Ml Drops, 2 DROPS OU BID, (Reported) Psyllium Husk 660 Gm Powder, 1 TSP PO DAILY PRN for CONSTIPATION, (Reported) Ropinirole HCl 0.25 Mg Tablet, 0.25 MG PO HS, (Reported) Scopolamine 1 Each Patch.td72, 1 PATCH TD DAILY PRN for DIZZINESS, (Reported) Sertraline HCl 25 Mg Tablet, 25 MG PO DAILY, (Reported) Patient Home Medication List Home Medication List Reviewed: Yes Review of Systems Review of Systems Constitutional: see HPI EENTM: no symptoms reported Respiratory: no symptoms reported Cardiovascular: no symptoms reported Gastrointestinal: no symptoms reported Genitourinary: no symptoms reported : No Musculoskeletal: no symptoms reported Skin: no symptoms reported Psychiatric/Neurological: See HPI Hematologic/Lymphatic: No Symptoms Reported Past Bttzupd-Daxnhl-Ufzbts Hx Past Med/Social Hx: Reviewed and Corrections made Patient Social History Alcohol Use: Denies Use Recreational Drug Use: No Smoking Status: Never a Smoker Recent Foreign Travel: No Contact w/Someone Who Travel: No Recent Infectious Disease Expo: No Recent Hopitalizations: No Physical Abuse: No Sexual Abuse: No Mistreated: No Fear: No Immunizations Up To Date Tetanus Booster (TDap): Unknown Date of Influenza Vaccine: Jan 29, 2017 Seasonal Allergies Seasonal Allergies: Yes Past Medical History Surgeries: Yes (BLADDER; FOOT) Breast, Gallbladder, Orthopedic Respiratory: No Cardiac: Yes Coronary Artery Disease Neurological: Yes Dementia, Parkinson's Disease Reproductive Disorders: No Genitourinary: Yes (urinary tract infections) UTI-Chronic Gastrointestinal: No Musculoskeletal: Yes Arthritis Endocrine: No HEENT: Yes Macular Degeneration Hearing Impairment: Hard of Hearing Cancer: No Psychosocial: No Integumentary: No Blood Disorders: No Family Medical History Colon cancer 19 FATHER Dementia 19 MOTHER Diabetes mellitus G8 BROTHER FH: breast cancer in first degree relative G8 SISTER FH: cancer G8 BROTHER No Pertinent Family Hx Physical Exam Vital Signs Vital Signs - First Documented 03/25/18 10:37 Temp 97.8 Pulse 74 Resp 18 B/P (MAP) 115/74 (88) Pulse Ox 94 O2 Delivery Nasal Cannula O2 Flow Rate 2.00 Capillary Refill : Less Than 3 Seconds Height, Weight, BMI Height: 5'4.00" Weight: 135lbs. 9.0oz. [id number]; 21.6 BMI Method:Stated General Appearance: No Apparent Distress, WD/WN, Other (somnolent, weak) HEENT: PERRL/EOMI, Normal ENT Inspection Neck: Normal Inspection Respiratory: Lungs Clear, Normal Breath Sounds, No Accessory Muscle Use, No Respiratory Distress Cardiovascular: Regular Rate, Rhythm, No Murmur, Normal Peripheral Pulses Gastrointestinal: Normal Bowel Sounds, Non Tender, Soft Extremity: Normal Inspection, No Pedal Edema Neurologic/Psychiatric: Alert (alert to voice but very somnolent. 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0 H 4.3-11.0 10^3/uL Red Blood Count 3.90 L 4.35-5.85 10^6/uL Hemoglobin 12.8 11.5-16.0 G/DL Hematocrit 39 35-52 % Mean Corpuscular Volume 100 H 80-99 FL Mean Corpuscular Hemoglobin 33 25-34 PG Mean Corpuscular Hemoglobin Concent 33 32-36 G/DL Red Cell Distribution Width 13.3 10.0-14.5 % Platelet Count 285 130-400 10^3/uL Mean Platelet Volume 8.8 7.4-10.4 FL Neutrophils (%) (Auto) 69 42-75 % Lymphocytes (%) (Auto) 19 12-44 % Monocytes (%) (Auto) 11 0-12 % Eosinophils (%) (Auto) 1 0-10 % Basophils (%) (Auto) 1 0-10 % Neutrophils # (Auto) 9.0 H 1.8-7.8 X 10^3 Lymphocytes # (Auto) 2.4 1.0-4.0 X 10^3 Monocytes # (Auto) 1.4 H 0.0-1.0 X 10^3 Eosinophils # (Auto) 0.1 0.0-0.3 10^3/uL Basophils # (Auto) 0.1 0.0-0.1 10^3/uL Sodium Level 141 135-145 MMOL/L Potassium Level 3.9 3.6-5.0 MMOL/L Chloride Level 107 98-107 MMOL/L Carbon Dioxide Level 22 21-32 MMOL/L Anion Gap 12 5-14 MMOL/L Blood Urea Nitrogen 28 H 7-18 MG/DL Creatinine 1.09 0.60-1.30 MG/DL Estimat Glomerular Filtration Rate 47 BUN/Creatinine Ratio 26 Glucose Level 113 H 70-105 MG/DL Calcium Level 9.6 8.5-10.1 MG/DL Corrected Calcium 9.7 8.5-10.1 MG/DL Magnesium Level 2.2 1.8-2.4 MG/DL Total Bilirubin 0.6 0.1-1.0 MG/DL Aspartate Amino Transf (AST/SGOT) 16 5-34 U/L Alanine Aminotransferase (ALT/SGPT) 10 0-55 U/L Alkaline Phosphatase 52 40-136 U/L Total Protein 6.6 6.4-8.2 GM/DL Albumin 3.9 3.2-4.5 GM/DL Urine Color YELLOW Urine Clarity VERY CLOUDY H Urine pH 6 5-9 Urine Specific [place] 1.020 1.016-1.022 Urine Protein 2+ H NEGATIVE Urine Glucose (UA) NEGATIVE NEGATIVE Urine Ketones 1+ H NEGATIVE Urine Nitrite NEGATIVE NEGATIVE Urine Bilirubin NEGATIVE NEGATIVE Urine Urobilinogen NORMAL NORMAL MG/DL Urine Leukocyte Esterase 3+ H NEGATIVE Urine RBC (Auto) 1+ H NEGATIVE Urine RBC NONE /HPF Urine WBC 10-25 H /HPF Urine Crystals PRESENT H /LPF Urine Amorphous Sediment LARGE MICHELLE PHOSPHATE H /LPF Urine Bacteria LARGE H /HPF Urine Casts NONE /LPF Urine Mucus MODERATE H /LPF Urine Culture Indicated YES My Orders Orders - JIGAR ACE MD Accucheck Stat ONCE (03/25/18 10:11) Saline Lock/Iv-Start (03/25/18 10:11) Cbc With Automated Diff (03/25/18 10:11) Comprehensive Metabolic Panel (11/25/18 10:11) Ua Culture If Indicated (03/25/18 10:11) O2 (03/25/18 10:30) Monitor-Rhythm Ecg Trace Only (03/25/18 10:30) Magnesium (03/25/18 10:30) Saline Lock/Iv-Start (03/25/18 10:30) Ns Iv 500 Ml (Sodium Chloride 0.9%) (03/25/18 10:30) Chest 1 View, Ap/Pa Only (03/25/18 11:16) Medications Given in ED Current Medications Medications Dose Ordered Sig/Presley Route Start Time Stop Time Status Last Admin Dose Admin Sodium Chloride 500 ml @ 0 mls/hr Q0M ONCE IV 03/25/18 10:30 03/25/18 10:32 DC 03/25/18 11:16 0 MLS/HR Vital Signs/I&O 03/25/18 10:37 Temp 97.8 Pulse 74 Resp 18 B/P (MAP) 115/74 (88) Pulse Ox 94 O2 Delivery Nasal Cannula O2 Flow Rate 2.00 Capillary Refill : Less Than 3 Seconds Blood Pressure Mean: 88 Point of Care Testing Finger Stick Blood Glucose: 111 Progress Note : Progress Note Patient was found to have urinary tract infection. She did not meet sepsis criteria. Treatment started with a gram of Rocephin in the ER. Patient also received a 500 mL normal saline bolus. I discussed disposition with patient and daughter. Because she is so weak, it was felt most appropriate to observe her in the hospital overnight. Case is discussed with Dr. Escobar who agrees with admission. Diagnostic Imaging Diagonstic Imaging: Xray Plain Films/CT/US/NM/MRI: chest Comments Chest x-ray viewed by me and report reviewed. See report below: NAME: RICHARD VORA [facility] REC#: [id number] PT STATUS: REG ER : 1929 PHYSICIAN: JIGAR ACE MD ADMIT DATE: 03/25/18/ER Draft Date of Exam:03/25/18 CHEST 1 VIEW, AP/PA ONLY Emanation: Single frontal view of the chest. Indication: Lethargy and decreased appetite. Comparison: Multiple priors, most recent on 05/14/2017. Findings: Unchanged calcified granuloma in the left lung base. There is an ill-defined 8 mm nodular density in the right lung base over the mid diaphragm. The lungs are otherwise clear. No pneumothorax or significant pleural effusion. There is suggestion of a calcified left hilar lymph nodes. The cardiomediastinal silhouette is unchanged. Normal cardiac size. No acute osseous abnormality. Impression: Ill-defined nodular density in the right lung base just above the diaphragm. This likely reflects confluence of shadows and possibly relates to the costochondral cartilage. This may be confirmed with lateral views or dedicated chest CT on a nonemergent basis. Otherwise, no acute chest disease and no significant change. Dictated on workstation # [id number] Dict: 03/25/18 1212 Trans: 03/25/18 1221 [facility] [id number] Interpreted by: CONNIE PERLA DO Departure Communication (Admissions) Time/Spoke to Admitting Phy: 13:35 Dr. Escobar Impression Primary Impression: Urinary tract infection Qualified Codes: N39.0 - Urinary tract infection, site not specified Additional Impressions: Altered mental status Qualified Codes: R41.82 - Altered mental status, unspecified Generalized weakness Disposition: 09 ADMITTED INPATIENT Condition: Improved Admissions Decision to Admit Reason: Admit from ER (General) Decision to Admit/Date: Mar 25, 2018 Time/Decision to Admit Time: 13:15 Departure-Patient Inst. Referrals: ALLAN GRAHAM MD (PCP/Family) Primary Care Physician IJGAR ACE MD Mar 25, 2018 12:33
[2018-03-25 12:55] LABS: BILIRUBIN,URINE NEGATIVE (NEGATIVE); CLARITY,URINE VERY CLOUDY; COLOR,URINE YELLOW; GLUCOSE, URINE (UA) NEGATIVE (NEGATIVE); KETONES,URINE 1+ (NEGATIVE); LEUKOCYTE ESTERASE ,URINE 3+ (NEGATIVE); NITRITE,URINE NEGATIVE (NEGATIVE); PH,URINE 6 (5-9); PROTEIN,URINE 2+ (NEGATIVE); UROBILINOGEN,URINE NORMAL (NORMAL)
[2018-03-25 13:09] LABS: AMORPHOUS SEDIMENT,UR LARGE AMOR PHOSPHATE /LPF; BACTERIA,URINE LARGE /HPF
[2018-03-25] MEDS ORDERED: cefTRIAXone FOR IV USE 1,000 MG in NS (IVPB) 50 ML IV ONE (14:00)
[2018-03-25 15:00] VITALS: BP 119/59
[2018-03-25 15:13] VITALS: BP 105/66
[2018-03-25] MEDS ORDERED: RT-ALBUTEROL SULF 2.5 MG/3 ML PRE-MIX VIAL INH PRN (15:30)
[2018-03-25] MEDS ORDERED: NS IV 1000 ML 1,000 ML ONE (15:45)
[2018-03-25] MEDS: NS IV 1000 ML 1,000 ML IV SCH (16:10)
[2018-03-25] MEDS ORDERED: ONDANSETRON 4 MG/2 ML (SDV) Z0FRAN IVP PRN (16:15)
[2018-03-25] MEDS ORDERED: SERT25TA PO (18:21)
[2018-03-25 19:20] VITALS: BP 122/80
[2018-03-26] VITALS: BP 192/84
[2018-03-26] MEDS: NS IV 1000 ML 1,000 ML IV SCH ×3 (02:09→21:46)
[2018-03-26 04:00] VITALS: BP 158/74
[2018-03-26 07:04] LABS: BASOPHILS % (AUTO) 1 % (0-10); EOSINOPHILS # (AUTO) 0.1 10^3/uL (0.0-0.3); EOSINOPHILS % (AUTO) 2 % (0-10); HEMATOCRIT 38 % (35-52); HEMOGLOBIN 12.3 G/DL (11.5-16.0); LYMPHOCYTES # (AUTO) 2.6 X 10^3 (1.0-4.0); LYMPHOCYTES % (AUTO) 29 % (12-44); MEAN CORPUSCULAR HEMOGLOBIN 32 PG (25-34); MEAN CORPUSCULAR HGB CONC 32 G/DL (32-36); MEAN CORPUSCULAR VOLUME 100 FL (80-99); MEAN PLATELET VOLUME 9.2 FL (7.4-10.4); MONOCYTES # (AUTO) 0.8 X 10^3 (0.0-1.0); MONOCYTES % (AUTO) 9 % (0-12); NEUTROPHILS # (AUTO) 5.2 X 10^3 (1.8-7.8); NEUTROPHILS % (AUTO) 59 % (42-75); PLATELET COUNT 264 10^3/uL (130-400); RED CELL DISTRIBUTION WIDTH 13.1 % (10.0-14.5); WHITE BLOOD COUNT 8.7 10^3/uL (4.3-11.0)
[2018-03-26 07:15] LABS: BUN/CREATININE RATIO 21; CALCIUM 8.8 MG/DL (8.5-10.1); CARBON DIOXIDE 24 MMOL/L (21-32); CHLORIDE 107 MMOL/L (98-107); CREATININE SERUM 0.71 MG/DL (0.60-1.30); GFR ESTIMATED > 60; GLUCOSE 82 MG/DL (70-105); POTASSIUM 3.6 MMOL/L (3.6-5.0); SODIUM 141 MMOL/L (135-145)
[2018-03-26 08:00] VITALS: BP 110/71
[2018-03-26] MEDS ORDERED: CALC-900 PO (10:04)
[2018-03-26] MEDS ORDERED: PSYL174P2 PO (10:04)
[2018-03-26 12:00] VITALS: BP 112/56
--- NOTE | 2018-03-26 13:19 | History & Physical-Hospitalist ---
History of Present Illness HPI/Chief Complaint The patient is an 87-year-old white female from [facility]. She was brought to the emergency room yesterday after her daughter noted her to be more lethargic than usual. She states that the mother had a urinary tract and infection in December and had seemed to be declining since then. In the emergency room she was found to have evidence of a urinary tract infection without evidence of sepsis. 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 Patients Allergies have been reviewed. Allergies Allergies Coded Allergies codeine (Verified Allergy, Unknown, 03/25/18) Past Vewhnkh-Xycers-Mlnklm Hx Past Med/Social Hx: Reviewed and Corrections made Patient Social History Alcohol Use: Denies Use Recreational Drug Use: No Smoking Status: Never a Smoker Physical Abuse Screen: No Sexual Abuse: No Recent Foreign Travel: No Contact w/other who traveled: No Recent Hopitalizations: No Recent Infectious Disease Expo: No Immunizations Up To Date Tetanus Booster (TDap): Unknown Date of Pneumonia Vaccine: Mar 01, 2016 Date of Influenza Vaccine: Jan 29, 2018 Seasonal Allergies Seasonal Allergies: Yes Past Medical History Surgeries: Breast, Gallbladder, Orthopedic Cardiac: Coronary Artery Disease Neurological: Dementia, Parkinson's Disease Reproductive: No Genitourinary: UTI-Chronic Musculoskeletal: Arthritis HEENT: Macular Degeneration Hearing Impairment: Hard of Hearing History of Blood Disorders: No Family History Colon cancer 19 FATHER Dementia 19 MOTHER Diabetes mellitus G8 BROTHER FH: breast cancer in first degree relative G8 SISTER FH: cancer G8 BROTHER No Pertinent Family Hx Review of Systems Constitutional: see HPI EENTM: no symptoms reported Respiratory: no symptoms reported Cardiovascular: no symptoms reported Gastrointestinal: no symptoms reported, loss of appetite Genitourinary: see HPI Musculoskeletal: other (walks with walker) Skin: no symptoms reported Psychiatric/Neurological: No Symptoms Reported Physical Exam Physical Exam Vital Signs Vital Signs - First Documented 03/25/18 03/25/18 10:37 15:13 Temp 97.8 Pulse 74 Resp 18 B/P (MAP) 115/74 (88) Pulse Ox 95 O2 Delivery Nasal Cannula O2 Flow Rate 2.00 FiO2 24 Capillary Refill : Less Than 3 Seconds Height, Weight, BMI Height: 5'4.00" Weight: 137lbs. 7.0oz. [id number]; 23.2 BMI Method:Stated General Appearance: Other (rather apathetic) Eyes: Bilateral Eye Normal Inspection HEENT: Normal ENT Inspection Neck: Normal Inspection Respiratory: Chest Non Tender, Lungs Clear, Normal Breath Sounds, No Accessory Muscle Use, No Respiratory Distress Cardiovascular: Regular Rate, Rhythm, No Edema, No Gallop, No JVD, No Murmur, Normal Peripheral Pulses Gastrointestinal: Normal Bowel Sounds, No Organomegaly, No Pulsatile Mass, Non Tender, Soft Back: Normal Inspection Extremity: Normal Capillary Refill, Normal Inspection, Normal Range of Motion, Non Tender, No Calf Tenderness, No Pedal Edema Neurologic/Psychiatric: Depressed Affect Skin: Normal Color, Warm/Dry Lymphatic: No Adenopathy Results Results/Procedures Labs Laboratory Tests 03/25/18 10:35 03/26/18 05:56 Patient resulted labs reviewed. Clinical Quality Measures DVT/VTE Risk/Contraindication: Risk Factor Score Per Nursin RFS Level Per Nursing on Admit: 3=High ZURDO ROMAN MD Mar 26, 2018 13:19
[2018-03-26] MEDS: cefTRIAXone 1 GM/NS 50 ML IVPB IV SCH ×2 (13:39)
[2018-03-26 15:15] VITALS: BP 135/62
[2018-03-26 19:55] VITALS: BP 128/77
[2018-03-27 00:56] VITALS: BP 138/82
[2018-03-27 03:20] VITALS: BP 174/83
[2018-03-27] MEDS: NS IV 1000 ML 1,000 ML IV SCH (07:42)
[2018-03-27 08:00] VITALS: BP 121/80
--- NOTE | 2018-03-27 11:26 | Progress Note-Hospitalist ---
Progress Note Progress Notes/Assess & Plan Date Seen 03/27/18 Time Seen by Provider: 11:23 Assessment & Plan The patient's daughter reports that she is much more alert this morning. The urine culture has returned as positive for 2 species of aeroococcus which would be sensitive to beta lactams. Accordingly she will be returned to [facility] to complete her course of treatment with oral medication. Physical exam: She is alert and oriented. Lungs are clear to auscultation. CV is regular without murmur. Impression: Urinary tract infection. Plan: Return to [facility]. SEE discharge sequence for medications and routines HARI ROMAN MD Mar 27, 2018 11:26
[2018-03-27] MEDS ORDERED: CEFD300C3 PO (11:32)
--- NOTE | 2018-03-27 11:34 | Discharge Instructions ---
Discharge Instructions Patient Instructions Patient Instructions: Resume previous diet. Medications as per discharge sequence. New antibiotic, Omnicef, has been described to [facility] drug Activity & Diet Discharge Diet: No Restrictions Activity as Tolerated: Yes HARI ROMAN MD Mar 27, 2018 11:34
[2018-03-27 12:00] VITALS: BP 120/75
[2018-03-27] MEDS: cefTRIAXone 1 GM/NS 50 ML IVPB IV SCH ×2 (13:41)
[2018-03-27 15:45] VITALS: BP 120/75
[2018-03-27] MEDS ORDERED: rOPINIRole 0.25 MG (REQUIP) TAB PO SCH (21:00)
[2018-03-28] MEDS ORDERED: CLOPIDOGREL 75 MG (PLAVIX) TABLET PO SCH (09:00)
[2018-03-28] MEDS ORDERED: LORATADINE (CLARITIN) 10 MG TAB PO SCH (09:00)
== END 2018-03-27 15:45 | DRG 690 ==
LOC: EDUNIT# 10:09 → ER 10:11 → UNDOADMIN 13:44 → 4TH 13:44
PROVIDERS: ADMIT Family Medicine; ATTEND Internal Medicine
DX: N39.0 Urinary tract infection, site not specified (principal); B96.89 Other specified bacterial agents as the cause of diseases classified elsewhere; G20 Parkinson's disease; F02.80 Dementia in other diseases classified elsewhere, unspecified severity, without behavioral disturbance, psychotic disturbance, mood disturbance, and anxiety; I25.10 Atherosclerotic heart disease of native coronary artery without angina pectoris; M19.91 Primary osteoarthritis, unspecified site; H35.30 Unspecified macular degeneration; J30.2 Other seasonal allergic rhinitis; Z66 Do not resuscitate; R53.83 Other fatigue; R63.0 Anorexia
CPT/HCPCS: 36415; 71045; 80048; 80053; 81000; 82962; 83735; 85025; 87077; 87088; 93041

== ENCOUNTER 2018-04-06 09:46 | Outpatient (CLI) | payer MEDICARE, OTHER ==
[~2018-04-06] VITALS: Ht 162.6 cm; Wt 62.3 kg
[~2018-04-06 09:46] MED LIST changes: +CALC-900 PO; +CEFD300C3 PO; +PSYL174P2 PO; +SERT25TA PO
[2018-04-06] MEDS ORDERED: NS IV 1000 ML 1,000 ML ONE (10:15)
[2018-04-06] MEDS: NS IV 1000 ML 1,000 ML IV SCH ×2 (10:25→11:51)
[2018-04-06 13:00] VITALS: BP_SYST 92; BP_SYST 97; BP_DIAS 52; BP_DIAS 73
[2018-04-06 13:30] VITALS: BP 92/52
== END 2018-04-06 13:00 | disposition home or self-care (01) ==
LOC: SDC 09:46
DX: E86.0 Dehydration (principal)
CPT/HCPCS: 96360; 96367

== ENCOUNTER 2018-08-17 20:33 | Emergency (ER) | payer MEDICARE, OTHER ==
[~2018-08-17] VITALS: Ht 162.6 cm; Wt 62.1 kg
--- NOTE | 2018-08-17 22:00 | Diagnostic Imaging Report ---
PROCEDURE: CT head and CT cervical spine without contrast. TECHNIQUE: Multiple contiguous axial images were obtained through the brain and cervical spine without the use of intravenous contrast. Sagittal and coronal reformations through the cervical spine were then performed. Auto Exposure Controls were utilized during the CT exam to meet ALARA standards for radiation dose reduction. INDICATION: Fall. COMPARISON: Prior study from September 20, 2016. FINDINGS: CT of the head demonstrates age-appropriate volume loss. There are no CT findings of acute intracranial hemorrhage. There is no mass effect or shift. There is no abnormal extra-axial collection. There is no hydrocephalus. There is some background microvascular changes within the white matter but no evidence of territorial loss of rutledge-white differentiation. Mastoids appear clear. There is no air-fluid level within the paranasal sinuses. Orbital contents are unremarkable. There is no acute calvarial abnormality Cervical spine demonstrates multilevel cervical degenerative disc disease and facet arthropathy. There is a retrolisthesis of C4 on 5 which appears secondary to degenerative disc disease as there is endplate spurring at that level. Craniocervical junction alignment appears maintained. There is a normal relationship of the lateral masses of C1 and C2. The facets appear appropriately aligned without evidence of facet joint or disc space widening. The vertebral body heights appear maintained. No acute cervical spine fracture is evident. The lung apices are clear. There is no acute soft tissue abnormality within the neck. There are atherosclerotic calcifications at the carotid bifurcations. IMPRESSION: 1. Age-related global volume loss with mild microvascular changes within the white matter. There are no CT findings of an acute intracranial abnormality. 2. Cervical degenerative disc disease and facet arthropathy without findings of acute fracture or traumatic malalignment. The slight retrolisthesis of C4 on 5 appears secondary to advanced endplate changes and spurs at that level. There are no CT findings to suggest high-grade central canal stenosis. Dictated by: Dictated on workstation # [id number]
--- NOTE | 2018-08-17 22:07 | ED Trauma-Multisystem ---
General Chief Complaint: Trauma-Non Activation Stated Complaint: FALL/HEAD INJ Nursing Triage Note: PT TO ROOM #5 VIA ED W/C BY ED STAFF. ALERT TO SELF. DAUGHTER @ SIDE REPORTS @ AP[employer]OX 1830 ON THIS DAY, PT WAS BEING ASSISTED BACK TO HER ROOM (VIA [employer]) WHEN SHE FELL BACKWARDS IN THE ELEVATOR. DAUGHTER REPORTS PT FIRST FELL IN HER BUTTOCKS THEN STRUCK THE BACK OF HER HEAD. DAUGHTER DENIES PT LOC. 3MM PERRLA. TENDER UPON LIGHT PALPATION TO DISTAL CERVICAL SPINE. C-COLLAR PLACED. PT STATES, "MY SPINE HURTS." DAUGHTER @ SIDE REPORTS NORMAL COGNITION FOR PT ( HX DEMENTIA). History of Present Illness Date Seen by Provider: Aug 17, 2018 Time Seen by Provider: 21:00 Initial Comments 87-year-old female with history of dementia sustained a fall in the elevator at via [employer], it was witnessed and the patient had no loss of consciousness, vomiting, or change in mental status. Her daughter reports she is being treated for a urinary tract infection. The staff reports that she did not eat much today and became weak when being transported back to her room. They were unable to keep her standing, she fell hitting the occipital region of her head. She complained of head and neck pain. She was brought to the emergency Department by private vehicle. C-collar was placed. Patient is hard of hearing but answers questions, only complaint is occipital head pain. Daughter reports she is a DO NOT RESUSCITATE. Accu-Chek 102. Occurred: This Evening Severity: Mild Pain/Injury Location: Head Method of Injury: Fall Loss of Consciousness: No Loss of Consciousness Associated Symptoms (Fall): Denies Symptoms Allergies and Home Medications Allergies Coded Allergies: codeine (Verified Allergy, Unknown, 03/25/18) Home Medications Acetaminophen 500 Mg Tablet, 500 MG PO QID, (Reported) Calcium Phosphate Trib/Vit D3 1 Each Tab.chew, 1 TAB.CHEW PO DAILY, (Reported) Cefdinir 300 Mg Capsule, 300 MG PO twice a day Prescribed by: HARI ROMAN on 03/27/18 1132 Clopidogrel Bisulfate 75 Mg Tablet, 75 MG PO DAILY, (Reported) Cyclosporine 1 Each Droperette, 1 DROP OU DAILY, (Reported) Donepezil HCl 10 Mg Tablet, 10 MG PO 1800, (Reported) Eyelid Cleanser Combination #3 50 Ml Foam..ml., OU BID, (Reported) Glucosamine Sulfate 2Kcl 1,000 Mg Tablet, 1,000 MG PO BID, (Reported) Loratadine 10 Mg Tablet, 10 MG PO DAILY, (Reported) Lutein 20 Mg Capsule, 20 MG PO 1200, (Reported) Magnesium Hydroxide 2,400 Mg/10 Ml Oral.susp, 30 ML PO DAILY PRN for CONSTIPATION-7TH LINE, (Reported) Memantine HCl 28 Mg Cap.spr.24, 28 MG PO HS, (Reported) Multivitamin 1 Each Tablet, 1 TAB PO DAILY, (Reported) Ondansetron HCl 4 Mg Tab, 4 MG PO Q4H PRN for NAUSEA/VOMITING-1ST LINE, ( Reported) Polyvinyl Alcohol/Povidone 15 Ml Drops, 2 DROPS OU BID, (Reported) Psyllium Husk/Aspartame 174 Gm Powder, 1 TSP PO DAILY PRN for CONSTIPATION, ( Reported) Ropinirole HCl 0.25 Mg Tablet, 0.25 MG PO HS, (Reported) Scopolamine 1 Each Patch.td72, 1 PATCH TD DAILY PRN for DIZZINESS, (Reported) Sertraline HCl 25 Mg Tablet, 25 MG PO DAILY, (Reported) Patient Home Medication List Home Medication List Reviewed: Yes Review of Systems Review of Systems Constitutional: no symptoms reported, see HPI All Other Systems Reviewed Negative Unless Noted: Yes Past Cedttbz-Lqapnu-Busfym Hx Past Med/Social Hx: Reviewed Nursing Past Med/Soc Hx Patient Social History Recent Foreign Travel: No Contact w/Someone Who Travel: No Recent Infectious Disease Expo: No Recent Hopitalizations: No Immunizations Up To Date Tetanus Booster (TDap): Unknown Date of Pneumonia Vaccine: Mar 01, 2016 Date of Influenza Vaccine: Jan 29, 2018 Seasonal Allergies Seasonal Allergies: Yes Past Medical History Surgeries: Yes (BLADDER; FOOT) Breast, Gallbladder, Orthopedic Respiratory: No Cardiac: Yes Coronary Artery Disease Neurological: Yes Dementia, Parkinson's Disease Reproductive Disorders: No Genitourinary: Yes (urinary tract infections) UTI-Chronic Gastrointestinal: No Musculoskeletal: Yes Arthritis Endocrine: No HEENT: Yes Macular Degeneration Hearing Impairment: Hard of Hearing Cancer: No Psychosocial: No Integumentary: No Blood Disorders: No Family Medical History Colon cancer 19 FATHER Dementia 19 MOTHER Diabetes mellitus G8 BROTHER FH: breast cancer in first degree relative G8 SISTER FH: cancer G8 BROTHER No Pertinent Family Hx Physical Exam Vital Signs Vital Signs - First Documented 08/17/18 20:40 Temp 98.0 Pulse 76 Resp 17 B/P (MAP) 133/73 (93) Pulse Ox 94 O2 Delivery Room Air Height, Weight, BMI Height: 5'4.00" Weight: 137lbs. 7.0oz. 62.025431vu; 23.2 BMI Method:Stated General Appearance: No Apparent Distress, WD/WN Head: No Evidence of Injury, Tenderness (occipital region); No Active Bleeding , No Torres's Sign, No Contusions, No Ecchymosis, No Lacerations, No Swelling Eyes: Bilateral Eye Normal Inspection, Bilateral Eye PERRL Ears, Nose, Throat: No Evidence of ENT Injury, No Dental Injury Neck: Full Range of Motion, Normal Inspection, Non Tender, Supple Cardiovascular: Regular Rate, Rhythm, No Edema, No Murmur, Normal Peripheral Pulses Respiratory: Chest Non Tender, Lungs Clear, Normal Breath Sounds Gastrointestinal: Normal Bowel Sounds, Non Tender, Soft Back: Normal Inspection, No CVA Tenderness, No Vertebral Tenderness, Other ( pelvis stable, follow simple commands, active range of motion to upper and lower extremities without pain) Neurologic/Psychiatric: Alert, No Motor/Sensory Deficits, Normal Mood/Affect ( appropriate for baseline) Skin: Normal Color, Warm/Dry, Other (skin tear to right elbow with Steri- Strips in place, appears to be several days old) Lymphatic: No Adenopathy Brooke Coma Score Best Eye Response ([place]): (4) Open Spontaneously Best Verbal Response ([place]): (5) Oriented (to person and location) Best Motor Response ([place]): (6) Obeys Commands Brooke Total: 15 Progress/Results/Core Measures Results/Orders Lab Results Laboratory Tests Test 08/17/18 21:09 Range/Units Glucometer 102 70-110 MG/DL My Orders Orders - LEIA CARR Ct Head/Cervical Spine Wo (08/17/18 21:05) Accucheck Stat ONCE (08/17/18 21:06) Vital Signs/I&O 08/17/18 20:40 Temp 98.0 Pulse 76 Resp 17 B/P (MAP) 133/73 (93) Pulse Ox 94 O2 Delivery Room Air Blood Pressure Mean: 93 Progress Progress Note : Time: 21:00 Progress Note Patient assessed and c-collar in place, will obtain CT head and neck. Discussed patient's assessment and vital signs with her daughter, since she is essentially stable with a history of dementia, she does not wish to have aggressive lab workup is not indicated. [address] reviewed by myself, no acute findings, will write radiologist reading. 2207 CT head and neck clear, c-collar removed. Patient had full active range of motion cervical spine with no radicular or paresthesia symptoms. She answered questions appropriately. 2214 discharge instructions and return precautions reviewed with the patient and her daughter. All questions answered. Diagnostic Imaging Diagonstic Imaging: CT Plain Films/CT/US/NM/MRI: c-spine, head Comments NAME: RICHARD VORA [facility] REC#: [id number] PT STATUS: REG ER : 1929 PHYSICIAN: LEIA CARR ADMIT DATE: 08/17/18/ER Draft Date of Exam:08/17/18 CT HEAD/CERVICAL SPINE WO PROCEDURE: CT head and CT cervical spine without contrast. TECHNIQUE: Multiple contiguous axial images were obtained through the brain and cervical spine without the use of intravenous contrast. Sagittal and coronal reformations through the cervical spine were then performed. Auto Exposure Controls were utilized during the CT exam to meet ALARA standards for radiation dose reduction. INDICATION: Fall. COMPARISON: Prior study from September 20, 2016. FINDINGS: CT of the head demonstrates age-appropriate volume loss. There are no CT findings of acute intracranial hemorrhage. There is no mass effect or shift. There is no abnormal extra-axial collection. There is no hydrocephalus. There is some background microvascular changes within the white matter but no evidence of territorial loss of rutledge-white differentiation. Mastoids appear clear. There is no air-fluid level within the paranasal sinuses. Orbital contents are unremarkable. There is no acute calvarial abnormality Cervical spine demonstrates multilevel cervical degenerative disc disease and facet arthropathy. There is a retrolisthesis of C4 on 5 which appears secondary to degenerative disc disease as there is endplate spurring at that level. Craniocervical junction alignment appears maintained. There is a normal relationship of the lateral masses of C1 and C2. The facets appear appropriately aligned without evidence of facet joint or disc space widening. The vertebral body heights appear maintained. No acute cervical spine fracture is evident. The lung apices are clear. There is no acute soft tissue abnormality within the neck. There are atherosclerotic calcifications at the carotid bifurcations. IMPRESSION: 1. Age-related global volume loss with mild microvascular changes within the white matter. There are no CT findings of an acute intracranial abnormality. 2. Cervical degenerative disc disease and facet arthropathy without findings of acute fracture or traumatic malalignment. The slight retrolisthesis of C4 on 5 appears secondary to advanced endplate changes and spurs at that level. There are no CT findings to suggest high-grade central canal stenosis. Dictated on workstation # [id number] Dict: [id number]/17/[id number] Trans: [id number]/[id number] [facility] [id number] Interpreted by: DANIEL MALONE MD Electronically signed by: Departure Impression Primary Impression: Fall Qualified Codes: W19.XXXA - Unspecified fall, initial encounter Additional Impression: Dementia Qualified Codes: F03.90 - Unspecified dementia without behavioral disturbance Disposition: 01 HOME, SELF-CARE Condition: Improved Departure-Patient Inst. Decision time for Depature: 20:10 Referrals: ALLAN GRAHAM MD (PCP/Family) Primary Care Physician Patient Instructions: Preventing Falls in the Older Adult Add. Discharge Instructions: Encourage increase fluid intake. Use walker or cane when ambulating. Assisted patient, as needed. Follow-up with primary care provider if symptoms are not improving or worsen. Continue to take antibiotic for urinary tract infection. Return to emergency department for new, urgent health care needs. All discharge instructions reviewed with patient and/or family. Voiced understanding. Copy Copies To 1: ALLAN GRAHAM MD, AMY ARNP Aug 17, 2018 22:07
[2018-08-17 22:30] VITALS: BP 167/101
== END 2018-08-17 22:30 | disposition home or self-care (01) ==
LOC: EDUNIT# 20:33 → ER 20:34
DX: G20 Parkinson's disease (principal); F02.80 Dementia in other diseases classified elsewhere, unspecified severity, without behavioral disturbance, psychotic disturbance, mood disturbance, and anxiety; R51 Headache; I25.10 Atherosclerotic heart disease of native coronary artery without angina pectoris; R40.2142 Coma scale, eyes open, spontaneous, at arrival to emergency department; R40.2252 Coma scale, best verbal response, oriented, at arrival to emergency department; R40.2362 Coma scale, best motor response, obeys commands, at arrival to emergency department; Z88.5 Allergy status to narcotic agent; Z79.02 Long term (current) use of antithrombotics/antiplatelets; Z98.890 Other specified postprocedural states; Z87.440 Personal history of urinary (tract) infections; Z80.0 Family history of malignant neoplasm of digestive organs; Z80.3 Family history of malignant neoplasm of breast; W01.198A Fall on same level from slipping, tripping and stumbling with subsequent striking against other object, initial encounter
CPT/HCPCS: 70450; 72125; 82962

== ENCOUNTER → 2018-08-20 | Outpatient (CLI) | payer MEDICARE, OTHER ==
[2018-08-20 20:19] LABS: BILIRUBIN,URINE NEGATIVE (NEGATIVE); CLARITY,URINE SLIGHTLY CLOUDY; COLOR,URINE YELLOW; GLUCOSE, URINE (UA) NEGATIVE (NEGATIVE); KETONES,URINE NEGATIVE (NEGATIVE); LEUKOCYTE ESTERASE ,URINE NEGATIVE (NEGATIVE); NITRITE,URINE NEGATIVE (NEGATIVE); PH,URINE 7 (5-9); PROTEIN,URINE NEGATIVE (NEGATIVE); UROBILINOGEN,URINE NORMAL (NORMAL)
[2018-08-20 20:29] LABS: BACTERIA,URINE MODERATE /HPF; WBC,URINE 0-2 /HPF
== END ==
LOC: LABNPT 20:13
DX: N39.0 Urinary tract infection, site not specified (principal)
CPT/HCPCS: 81000; 87077; 87088

== ENCOUNTER 2019-01-29 12:02 | Outpatient (CLI) | payer MEDICARE ==
[2019-01-29] MEDS ORDERED: NS IV 1000 ML 1,000 ML IV SCH (12:15)
[2019-01-29 12:40] VITALS: BP 122/64
[2019-01-29 14:20] VITALS: BP 152/78
== END 2019-01-29 14:30 | disposition home or self-care (01) ==
LOC: SDC 12:02
PROVIDERS: ATTEND Nurse Practitioner Family
DX: E86.0 Dehydration (principal); N39.0 Urinary tract infection, site not specified
CPT/HCPCS: 96360